=== PATIENT | male | born 1985 | race Caucasian/White ===

== ENCOUNTER 2017-02-28 04:32 | Emergency (ER) | payer OTHER ==
[2017-02-28] MEDS ORDERED: METHYLPREDNISOLONE INJ 125 MG/2 ML SDV IV ONE (05:14)
[2017-02-28] MEDS ORDERED: CLINDAMYCIN PHOSPHATE INJ 300 MG/2 ML SDV IV ONE (05:14)
[2017-02-28] MEDS ORDERED: NORMAL SALINE 1000 ML 1,000 ML IV ONE (05:14)
[2017-02-28] MEDS ORDERED: CLINDAMYCIN 600 MG/D5W RTU 600 MG/50 ML RTUPB IV ONE (05:24)
--- NOTE | 2017-02-28 05:24 | ER Document Report ---
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 He now has increased swelling and pain with hot potato voice. Able to swallow secretions. (ADRIANNE BARBOZA) - Related Data Allergies/Adverse Reactions: No Known Allergies Allergy (Unverified 02/28/17 04:39) Past Medical History - General Information source: Patient - Social History Smoking Status: Current Every Day Smoker Frequency of alcohol use: Occasional Drug Abuse: None Occupation: [employer] [place] Lives with: Spouse/Significant other Family History: Reviewed & Not Pertinent - Medical History Medical History: Negative Renal/ Medical History: Denies: Hx Peritoneal Dialysis Surgical Hx: Negative <ADRIANNE BARBOZA - Last Filed: 02/28/17 07:09> Review of Systems - Review of Systems Constitutional: No symptoms reported EENT: See HPI Cardiovascular: No symptoms reported Respiratory: No symptoms reported Gastrointestinal: No symptoms reported Genitourinary: No symptoms reported Male Genitourinary: No symptoms reported Musculoskeletal: No symptoms reported Skin: No symptoms reported Hematologic/Lymphatic: No symptoms reported Neurological/Psychological: No symptoms reported <ADRIANNE BARBOZA - Last Filed: 02/28/17 07:09> Physical Exam - Vital signs Interpretation: Normal - General General appearance: Appears well - HEENT Head: Normocephalic, Atraumatic Eyes: Normal Conjunctiva: Normal Pupils: PERRL Tympanic membrane: Normal Nasal: Normal Mucous membranes: Dry Pharynx: Erythema, Peritonsillar abscess - right, Uvular edema, Potential airway comprom. Neck: Lymphadenopathy - anterior, Supple - Respiratory Respiratory status: No respiratory distress Chest status: Nontender Breath sounds: Normal Chest palpation: Normal - Cardiovascular Rhythm: Regular Heart sounds: Normal auscultation Murmur: No - Abdominal Inspection: Normal Distension: No distension Bowel sounds: Normal Tenderness: Nontender Organomegaly: No organomegaly. No: Hepatomegaly, Splenomegaly - Back Back: Normal, Nontender - Extremities General upper extremity: Normal inspection, Nontender, Normal color, Normal ROM , Normal temperature General lower extremity: Normal inspection, Nontender, Normal color, Normal ROM , Normal temperature, Normal weight bearing. No: Nichole's sign - Neurological Neuro grossly intact: Yes Cognition: Normal Orientation: AAOx4 [place] Coma Scale Eye Opening: Spontaneous [place] Coma Scale Verbal: Oriented [place] Coma Scale Motor: Obeys Commands [place] Coma Scale Total: 15 Speech: Normal Motor strength normal: LUE, RUE, LLE, RLE Sensory: Normal - Psychological Associated symptoms: Normal affect, Normal mood - Skin Skin Temperature: Warm Skin Moisture: Dry Skin Color: Normal Skin irregularity: negative: Rash <ADRIANNE BARBOZA - Last Filed: 02/28/17 07:09> - Vital signs Vitals: Pulse BP Pulse Ox 91 159/118 H 98 02/28/17 04:36 02/28/17 04:36 02/28/17 04:36 Course - Laboratory Result Diagrams: 02/28/17 05:27 02/28/17 05:27 <ADRIANNE BARBOZA - Last Filed: 02/28/17 07:09> - Laboratory Result Diagrams: 02/28/17 05:27 02/28/17 05:27 <BRANDON MURILLO - Last Filed: 02/28/17 08:03> - Re-evaluation Re-evalutation: 02/28/17 05:[address] sena . Consult dr. Desai the ENT numerical control machine operator and he will drain the abscess in his office at 0800. Dr sena OK with that but we will watch him in the ER until that time. 02/28/17 06:41 pt has had borderline HTN in past, no medication. Morphine ordered for pain. 02/28/17 07:09 care transferred to Susan murillo, pt will be watched until 0750 to get to the ENT office. Dr. hutchison aware. (ADRIANNE BARBOZA) 02/28/17 08:02 Patient denies any worsening throat pain or subjective throat swelling. Patient without any objective increase in swelling to posterior pharynx. Patient continues with right peritonsillar abscess muffled voice. Patient able to manage his oral secretions. Patient may be discharged. Patient has the address and phone number of the ENT office that he is following up directly with. (BRANDON MURILLO) - Vital Signs Vital signs: Temp Pulse Resp BP Pulse Ox 91 20 159/118 H 98 02/28/17 04:36 02/28/17 05:10 02/28/17 04:36 02/28/17 04:36 - Laboratory Laboratory results interpreted by me: 02/28/17 02/28/17 05:27 05:27 WBC 14.1 H Seg Neutrophils % 82.3 H Lymphocytes % 5.6 L Absolute Neutrophils 11.6 H Chloride 96 L Glucose 160 H Direct Bilirubin 0.8 H Alkaline Phosphatase 158 H Discharge <ADRIANNE BARBOZA - Last Filed: 02/28/17 07:09> <BRANDON MURILLO - Last Filed: 02/28/17 08:03> - Discharge Clinical Impression: right peritonsillar abscess, Elevated blood pressure reading Condition: Stable Disposition: HOME, SELF-CARE Instructions: Clindamycin ([facility]), High Blood Pressure ([facility]), Dori-Tonsillar Abscess ([facility]), Steroid Medication Additional Instructions: go directly to dr. Desai Office to be there at 8 am. Address: [address] [place] [address] , [place] [address]
[2017-02-28 05:41] LABS: ABSOLUTE BASOPHILS # (AUTO) 0.1 10^3/uL (0.0-0.2); ABSOLUTE EOSINOPHILS # (AUTO) 0.2 10^3/uL (0.0-0.6); ABSOLUTE LYMPHOCYTES (AUTO) 0.8 10^3/uL (0.5-4.7); ABSOLUTE MONOCYTES (AUTO) 1.4 10^3/uL (0.1-1.4); ABSOLUTE NEUT (AUTO) 11.6 10^3/uL (1.7-8.2); BASOPHILS % (AUTO) 0.5 % (0-2); EOSINOPHILS % (AUTO) 1.4 % (0-6); HEMATOCRIT 45.6 % (37.9-51.0); HEMOGLOBIN 15.6 g/dL (13.5-17.0); HGB HCT DIFFERENCE 1.2; LYMPHOCYTES % (AUTO) 5.6 % (13-45); MEAN CORPUSCULAR HEMOGLOBIN 29.5 pg (27.0-33.4); MEAN CORPUSCULAR HGB CONC 34.2 g/dL (32.0-36.0); MEAN CORPUSCULAR VOLUME 86 fl (80-97); MONOCYTES % (AUTO) 10.2 % (3-13); RED BLOOD COUNT 5.28 10^6/uL (4.35-5.55); RED CELL DISTRIBUTION WIDTH 12.8 % (11.5-14.0); SEGMENTED NEUTROPHILS % (AUTO) 82.3 % (42-78); WHITE BLOOD COUNT 14.1 10^3/uL (4.0-10.5)
[2017-02-28 05:57] LABS: ALANINE AMINOTRANSFERASE 58 U/L (21-72); ALBUMIN 4.4 g/dL (3.5-5.0); ALKALINE PHOSPHATASE 158 U/L (38-126); ANION GAP 15 (5-19); ASPARTATE AMINO TRANSFERASE 55 U/L (17-59); BILIRUBIN,DIRECT 0.8 mg/dL (0.0-0.4); BILIRUBIN,TOTAL 1.3 mg/dL (0.2-1.3); BLOOD UREA NITROGEN 8 mg/dL (7-20); CALCIUM 9.9 mg/dL (8.4-10.2); CARBON DIOXIDE 27 mmol/L (22-30); CHLORIDE 96 mmol/L (98-107); CREATININE RESULT 0.64 mg/dL (0.52-1.25); GLUCOSE 160 mg/dL (75-110); SODIUM 138.2 mmol/L (137-145); TOTAL PROTEIN 7.5 g/dL (6.3-8.2)
[2017-02-28] MEDS ORDERED: MORPHINE SULFATE 10 MG/ML INJ IV ONE ×2 (06:16→07:10)
[2017-02-28 08:08] VITALS: BP 158/115
== END 2017-02-28 08:09 | disposition home or self-care (01) ==
LOC: ER 04:32
DX: J36 Peritonsillar abscess (principal); R50.9 Fever, unspecified; R03.0 Elevated blood-pressure reading, without diagnosis of hypertension; F17.200 Nicotine dependence, unspecified, uncomplicated
CPT/HCPCS: 99283; 96375; 96365; 36415; 85025; 80053; J2930; J2270; J7030